=== PATIENT | male | born 2005 | race Caucasian/White ===

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

== ENCOUNTER 2023-01-31 10:14 | Emergency (ER) | payer OTHER, SELFPAY ==
[2023-01-31 10:15] VITALS: BP 120/73; PULSE 74; RESP 16; TEMP 36.6; O2SAT 99; BMI 31.4
--- NOTE | 2023-01-31 10:53 | ED.VIS.CHEST ---
HPI History of Present Illness Chief Complaint: Chest Pain Narrative Narrative: 18-year-old male presenting with chest discomfort. Patient states that he was ill about a week and a half ago and had a cold. He was tested for COVID and this was negative. He is recovered since. He no longer has fevers, chills, body aches. He is eating and drinking normally. He is making normal urine and stool. Patient notes he has some discomfort in his chest but also notes that he played baseball for the first time in a while last night. He was running the bases and did not feel short of breath. He thinks he may have pulled something in his chest from swinging a baseball bat. He called his primary care physician who referred him to the urgent care to get a chest x-ray. The urgent care then had him come to the emergency room because of the chest pain. Patient has no cardiac history. No DVT/PE risk factors. [facility] Medical History Asthma Contact with and (suspected) exposure to other viral communicable diseases URI (upper respiratory infection) Home Medications rizatriptan 10 mg tablet 10 mg PO .X1 PRN 03/13/19 [History Last Taken 03/12/19] albuterol sulfate 90 mcg/actuation breath activated powder inhaler 2 inh inhalation Q6H PRN 12/10/20 [History Last Taken Unknown] Allergy/AdvReac Type Severity Reaction Status Date / Time No Known Allergies Allergy Verified 01/31/23 10:17 Social History Smoking Status: Never smoker alcohol intake: never ROS ROS ED Constitutional Constitutional ED: Denies chills, fever(s) or sweats Eyes Eyes: Denies blurry vision or change in vision ENT ENT ED: Denies ear pain or sore throat Cardiovascular Cardiovascular: Reports chest pain; Denies palpitations or racing heartbeat Respiratory/Chest Respiratory/Chest: Denies cough, dyspnea or sputum Gastrointestinal Gastrointestinal: Denies abdominal pain, constipation, diarrhea, nausea or vomiting Genitourinary Genitourinary ED: Denies dysuria, hematuria or urinary frequency Musculoskeletal Musculoskeletal: Denies arthralgias, myalgias or neck pain Integumentary Denies abscess, Abrasions or rash Neurologic Neurologic: Denies headache(s), paresthesias or weakness Psychiatric Psychiatric: Denies anxiety, depression, suicidal ideation or suicidal thoughts Endocrine Endocrinology: Denies polydipsia or polyuria EXAM Physical Exam Const Vital Signs: 01/31/23 10:15 Temperature 97.9 F Temperature Source Temporal Pulse Rate 74 Respiratory Rate 16 Blood Pressure 120/73 Blood Pressure Mean 88 Pulse Ox 99 Oxygen Delivery Method Room Air Positive well nourished General Appearance ED: NAD; Negative for pallor HEENT Reports moist mucous membranes Eyes PERRL and EOMs intact bilaterally Chest Wall inspection of chest normal and palpation of chest normal Resp normal respiratory effort and clear to auscultation bilaterally Cardio Negative for regular rate or regular rhythm Neuro oriented x3 and CN's II-XII intact bilaterally Sensorium / Orientation: awake Motor Exam: strength 5/5 throughout Psych mental status grossly normal Skin no rashes or lesions noted General Skin Exam: Negative for jaundice or pallor MDM MDM MDM Narrative Medical decision making narrative: Well-appearing 18-year-old male with chest discomfort. Lungs are clear to auscultation on examination. Vital signs are stable he is afebrile. No history of cardiac disease and no risk factors. He is otherwise healthy. He is PERC negative. I offered a chest x-ray, but the patient declined. He states he does need a work note for today because he had a leave work. I do not believe he needs a cardiac work-up. Return precautions were discussed. Impression: 1. Chest pain? Discharge Plan Triage Chief Complaint: Chest Pain ED Provider: Jose Alberto Gomez Dx/Rx/DC Orders Instructions: ED Chest Wall Pain, Costochondritis Prescriptions: No Action albuterol sulfate 90 mcg/actuation aerosol powdr breath activated 2 inh inhalation Q6H PRN rizatriptan 10 MG tablet 10 mg PO .X1 PRN Stand Alone Forms: Work / School Excuse Primary Care Provider: Baldomero Monahan Referrals: Baldomero Monahan MD [Primary Care Provider] - Disposition Disposition: Home, Self Care
[2023-01-31 10:57] VITALS: BP 124/78; PULSE 64; RESP 14; TEMP 37; O2SAT 99
== END 2023-01-31 10:58 | disposition home or self-care (01) ==
PROVIDERS: Emergency Provider Student in an Organized Health Care Education/Training Program; PCP Pediatrics; Visit Provider Student in an Organized Health Care Education/Training Program
DX: R07.9 Chest pain, unspecified (principal); J45.909 Unspecified asthma, uncomplicated; Z79.899 Other long term (current) drug therapy
CPT/HCPCS: 99282

== ENCOUNTER 2023-02-25 11:30 | Emergency (ER) | payer OTHER, SELFPAY ==
[2023-02-25 11:31] VITALS: BP 115/76; PULSE 75; RESP 16; TEMP 37.2; O2SAT 99; BMI 31.5
--- NOTE | 2023-02-25 11:40 | EDS_ITS ---
HPI <MANUELITO Daniels - Last Filed: 02/25/23 13:42> History of Present Illness Chief Complaint: Male Pain/Injury Narrative Narrative: Patient is a 18-year-old male with no significant ankle history presents to the emergency department with left testicular pain. Patient was playing football, he was running when he felt something pull, he now has significant pain to his left testicle, he states is difficult to walk. He states he had a hernia 5 years ago to his right testicle, he is here for evaluation. He denies any difficulty urinating. Denies any traumatic injury. PFSH <MANUELITO Daniels - Last Filed: 02/25/23 13:42> [facility] Medical History Asthma Contact with and (suspected) exposure to other viral communicable diseases URI (upper respiratory infection) Home Medications rizatriptan 10 mg tablet 10 mg PO .X1 PRN 03/13/19 [History Last Taken 03/12/19] albuterol sulfate 90 mcg/actuation breath activated powder inhaler 2 inh inhalation Q6H PRN 12/10/20 [History Last Taken Unknown] Allergy/AdvReac Type Severity Reaction Status Date / Time No Known Allergies Allergy Verified 02/25/23 11:33 Social History Smoking Status: Never smoker alcohol intake: never ROS <MANUELITO Daniels - Last Filed: 02/25/23 13:42> ROS ED ROS Narrative Constitutional: Negative for fever, chills, weight loss, weakness Eyes: Negative for vision loss, vision change, double vision ENT: Negative for any sore throat, ear pain, congestion Cardiovascular: Negative for any chest pain, tightness, palpitations Respiratory: Negative for any cough, sputum production, hemoptysis, dyspnea, dyspnea on exertion, orthopnea Gastrointestinal: Negative for any abdominal pain, nausea, vomiting, diarrhea, constipation, blood in stool, blood in vomit : Negative for any urinary frequency, dysuria, retention, blood in urine. Positive testicular pain Muscle skeletal: Negative for any muscle joint pain, stiffness, myalgias, arthralgias, neck pain, back pain Neurological: Negative for any headache, syncope, numbness or tingling, dizziness Skin: Negative for any rashes, lumps, itching, abrasions, lacerations Psychiatric: Negative for any depression, anxiety, stress, suicidal ideation, homicidal ideation Hematologic: Negative for any easy bruising, excessive bruising, easy bleeding Allergies: Negative for any eczema, hives, rash EXAM <MANUELITO Daniels - Last Filed: 02/25/23 13:42> Physical Exam Narrative Exam Narrative: Vital signs reviewed. Abdomen: Soft, nontender, nondistended. No abdominal bruit or pulsatile masses. No hepatosplenomegaly Extremities: No peripheral edema, no signs of gross trauma or deformity. Active full range of motion of all extremities. Neuro: Cranial nerves II through XII intact, no focal neurological deficits. Skin: Clean dry and intact with no rash, purpura, petechiae, vesicles or pustules. Backs/flank: No CVA tenderness, no midline spinal tenderness, no deformity. Psych: Normal mood and affect. No SI, HI or acute psychosis. : Testicular exam was completed, there is no lesions, no drainage. There is no significant swelling, edema or erythema. Patient did have pain on palpation of the left testicle worse on the posterior aspect. Const Vital Signs: 02/25/23 11:31 Temperature 99 F Temperature Source Temporal Pulse Rate 75 Respiratory Rate 16 Blood Pressure 115/76 Blood Pressure Mean 89 Pulse Ox 99 Oxygen Delivery Method Room Air Positive well nourished and well developed General Appearance ED: well developed <Dr. Leoncio Thomas DO - Last Filed: 02/25/23 13:56> Physical Exam Const Vital Signs: 02/25/23 11:31 Temperature 99 F Temperature Source Temporal Pulse Rate 75 Respiratory Rate 16 Blood Pressure 115/76 Blood Pressure Mean 89 Pulse Ox 99 Oxygen Delivery Method Room Air MDM <MANUELITO Daniels - Last Filed: 02/25/23 13:42> MDM Radiography Diagnostic Testing: Clinical Impression(s) from Imaging Studies Testicular Ultrasound 02/25/23 11:40 IMPRESSION: 1. No evidence of testicular torsion at the time this examination was performed. 2. Slight increased vascularity of the left epididymis compared to the right side which may reflect epididymitis. Electronically Signed: Jus Alicea MD at 13:34 EDT , Treatment and Re-Evaluation Narrative: Patient appears to be in no obvious distress, when patient is laying down, patient states that the pain is less. Worsening pain when he standing up, palpation. Patient does have pain in left testicle after playing flag football. Patient received a testicular ultrasound ensuring that there is no testicular torsion, epididymitis, hernia. Patient was offered ibuprofen however refused at this time. Patient ultrasound of the testicle showed no evidence of testicular torsion at this time. Slight increase in vascularity of the left epididymitis compared to the right. According to the ultrasound could reflect epididymitis however this is secondary to the patient playing football. Believe that this is inflammation. This could be causing the discomfort. There is no evidence of any torsion, blood flow is normal. At this time, patient be instructed to ice, elevate, and to use ibuprofen. If it is not improved in 1 week, patient will follow-up with urology. He is happy with the plan of care I spoke with the patient the patient's mother, all questions were answered. Stable for discharge <Dr. Leoncio Thomas, DO - Last Filed: 02/25/23 13:56> MDM Radiography Diagnostic Testing: Clinical Impression(s) from Imaging Studies Testicular Ultrasound 02/25/23 11:40 IMPRESSION: 1. No evidence of testicular torsion at the time this examination was performed. 2. Slight increased vascularity of the left epididymis compared to the right side which may reflect epididymitis. Electronically Signed: Jus Alicea MD at 13:34 EDT , Treatment and Re-Evaluation Narrative: Patient appears to be in no obvious distress, when patient is laying down, patient states that the pain is less. Worsening pain when he standing up, palpation. Patient does have pain in left testicle after playing flag football. Patient received a testicular ultrasound ensuring that there is no testicular torsion, epididymitis, hernia. Patient was offered ibuprofen however refused at this time. Patient ultrasound of the testicle showed no evidence of testicular torsion at this time. Slight increase in vascularity of the left epididymitis compared to the right. According to the ultrasound could reflect epididymitis however this is secondary to the patient playing football. Believe that this is inflammation. This could be causing the discomfort. There is no evidence of any torsion, blood flow is normal. At this time, patient be instructed to ice, elevate, and to use ibuprofen. If it is not improved in 1 week, patient will follow-up with urology. He is happy with the plan of care I spoke with the patient the patient's mother, all questions were answered. Stable for discharge I have personally performed a face to face assessment of the patient and have reviewed the VERN Note. I performed a substantive portion of the visit including all aspects of the following. My forrest findings include: History is 18-year-old male playing backyard football when he took off running and made a cut. He felt pain in the left testicle region. Patient denies any bulge. He denies any bruising. He states he has had a prior hernia before but did not require surgery. Exam is cremasteric reflex intact. There is no bruising/ecchymosis of the scrotum. Testicle is tender to palpation. There is no hernia with Valsalva or with palpation. No pain at the inguinal ring. Medical Decison Making testicular ultrasound does not demonstrate any evidence of torsion. Slight increased blood flow noted by the radiologist to the epididymis however epididymitis would be very atypical given the history. Would recommend ice anti-inflammatories follow-up if no improvement return if worsening Other additions or changes: [None] Discharge Plan Triage Chief Complaint: Male Pain/Injury ED Midlevel Provider: Hank Pabon ED Provider: Leoncio Thomas Dx/Rx/DC Orders Clinical Impression: Groin strain, Left testicular pain Instructions: ED Testicular Pain, Unclear Cause Prescriptions: No Action albuterol sulfate 90 mcg/actuation aerosol powdr breath activated 2 inh inhalation Q6H PRN rizatriptan 10 MG tablet 10 mg PO .X1 PRN Primary Care Provider: Baldomero Monahan Referrals: Teja Mattson MD [Med Staff - Active Staff] - Baldomero Monahan MD [Primary Care Provider] - Disposition Disposition: Home, Self Care Discharge Date/Time: 02/25/23 13:53
--- NOTE | 2023-02-25 11:40 | US_ITS ---
INDICATION: Left testicular pain. EXAMINATION: Ultrasound US Scrotum (Contents) TECHNIQUE: Realtime ultrasound of the testicles was performed with grayscale, Color Doppler and spectral Doppler analysis. COMPARISON: Prior examination of 06/11/2018. FINDINGS: RIGHT: TESTIS: 4.5 x 3.4 x 2.4 cm. Normal in size and echotexture, without focal lesion. COLOR DOPPLER: Normal arterial flow present in the testicle with monophasic waveforms. EPIDIDYMIS: Prominent in size measuring about 1.3 cm and unremarkable echotexture, without focal lesion. [Normal color Doppler flow pattern in the epididymis. HYDROCELE: None. VARICOCELE: None. LEFT: TESTIS: 4.2 x 3.4 x 2.6 cm. Normal in size and echotexture, without focal lesion. COLOR DOPPLER: Normal arterial flow present in the testicle with monophasic waveforms. EPIDIDYMIS: Dominant in size and unremarkable echotexture, without focal lesion. Increased vascularity of the left epididymis. HYDROCELE: None. VARICOCELE: None. US/Testicular with Arterial Flow IMPRESSION: 1. No evidence of testicular torsion at the time this examination was performed. 2. Slight increased vascularity of the left epididymis compared to the right side which may reflect epididymitis. Electronically Signed: Jus Alicea MD at 13:34 EDT ,
== END 2023-02-25 13:53 | disposition home or self-care (01) ==
PROVIDERS: Emergency Provider Emergency Medicine; PCP Pediatrics; Visit Provider Emergency Medicine
DX: N50.812 Left testicular pain (principal); J45.909 Unspecified asthma, uncomplicated; Z79.899 Other long term (current) drug therapy; S76.811A Strain of other specified muscles, fascia and tendons at thigh level, right thigh, initial encounter; X58.XXXA Exposure to other specified factors, initial encounter; Y93.02 Activity, running; Y92.321 Football field as the place of occurrence of the external cause
CPT/HCPCS: 76870; 93976; 99282

== ENCOUNTER → 2023-05-11 | Outpatient (CLI) | payer OTHER, SELFPAY ==
--- NOTE | 2023-05-11 10:57 | RAD_ITS ---
STUDY: X-RAY - RIGHT SHOULDER REASON FOR EXAM: Male, 18 years old. Acute right shoulder pain. TECHNIQUE: 4 view(s) of the shoulder. COMPARISON: November 11, 2021 FINDINGS: Normal glenohumeral articulation. Normal acromioclavicular joint. Normal acromion. Normal humeral head and visualized proximal humerus. Normal soft tissues. Normal visualized pulmonary apex. RAD/Shoulder min 2 Views IMPRESSION: No interval change. Normal shoulder. Electronically Signed: Daron Mo MD at 13:11 EST ,
== END | disposition home or self-care (01) ==
LOC: RAD 10:55
PROVIDERS: PCP Pediatrics; Referring Provider Pediatrics; Visit Provider Pediatrics
DX: M25.511 Pain in right shoulder (principal)
CPT/HCPCS: 73030

== ENCOUNTER 2024-09-12 18:24 | Emergency (ER) | payer OTHER, SELFPAY ==
[2024-09-12 18:24] VITALS: BP 141/69; PULSE 97; RESP 16; TEMP 36.7; O2SAT 99; BMI 26.9
--- NOTE | 2024-09-12 18:41 | EDS_ITS ---
HPI History of Present Illness Chief Complaint: Eye Problem Detail of Chief Complaint: Left eye chemical splash Informant: patient Narrative Narrative: Patient presents to the emergency department with chemical splash into the left eye. Patient states that he was working on a machine that did not have peroxide flowing through it so he unhooked the hose connection which then sprayed little bit of 44% peroxide onto his left arm and in and around his left eye. He was wearing safety glasses. Patient had some irritation and he did irrigate the eye at work. Comes into the ER for continued irrigation. He just has some minimal irritation currently. He denies any vision change. [facility] Medical History Asthma Contact with and (suspected) exposure to other viral communicable diseases URI (upper respiratory infection) Home Medications ?Medication ?Instructions ?Recorded ?Last Taken ?Type rizatriptan 10 mg tablet 10 mg PO .X1 PRN 03/13/19 History albuterol sulfate 90 mcg/actuation 2 inh inhalation Q6 H PRN 12/10/20 Unknown History breath activated powder inhaler azithromycin 200 mg/5 mL oral See Rx Instructions PO . COMPLEX 06/13/24 Unknown Rx suspension #40 mL erythromycin 5 mg/gram (0.5 %) eye 1 applic LEFT EYE Q 6H #3.5 grams 09/12/24 Unknown Rx ointment Allergy/AdvReac Type Severity Reaction Status Date / Time No Known Allergies Allergy Verified 09/12/24 18:25 Social History Smoking Status: Never smoker alcohol intake: never ROS ROS ED Review of Systems ROS Unobtainable: other Constitutional Constitutional ED: Reports lethargy; Denies chills, fever(s), sweats or weight loss Eyes Eyes: Reports other Details: Left eye chemical splash ; Denies blurry vision, change in vision or diplopia ENT ENT ED: Denies rhinorrhea or sore throat Cardiovascular Cardiovascular: Denies chest pain, orthopnea or racing heartbeat Respiratory/Chest Respiratory/Chest: Denies cough, dyspnea, dyspnea on exertion, orthopnea or sputum Gastrointestinal Gastrointestinal: Denies abdominal pain, diarrhea, nausea or vomiting Genitourinary Genitourinary ED: Denies dysuria, hematuria or urinary frequency Musculoskeletal Musculoskeletal: Denies arthralgias, back pain, myalgias or neck pain Integumentary Denies abscess, Abrasions or rash Neurologic Neurologic: Denies headache(s) or weakness Psychiatric Psychiatric: Denies anxiety, depression or suicidal thoughts Endocrine Endocrinology: Denies polydipsia, polyphagia or polyuria Hematologic/Lymphatic Hematologic/Lymphatic: Denies easy bleeding, easy bruising or lymphadenopathy Allergic/Immunologic Allergic/Immunologic ED: Denies mouth swelling, tongue swelling or urticaria EXAM Physical Exam Const Vital Signs: 09/12/24 18:24 Temperature 98.1 F Temperature Source Temporal Pulse Rate 97 Respiratory Rate 16 Blood Pressure 141/69 H Blood Pressure Mean 93 Pulse Ox 99 Oxygen Delivery Method Room Air Positive well nourished and well developed General Appearance ED: well developed and NAD HEENT Reports TM's clear and moist mucous membranes HEENT Narrative: Left eye-no significant erythema of the conjunctiva noted. Pupils are equal react light bilaterally. No chemical cuellar noted to the skin around the eye. Extraocular muscle movement is normal normocephalic and atraumatic; Negative for trauma or tenderness Tympanic Membrane ED: Yes TM's clear Eyes PERRL and EOMs intact bilaterally General Eye ED: Negative for pale conjunctiva or scleral icterus Neck no lymphadenopathy, supple and no JVD General: Negative for tenderness Chest Wall inspection of chest normal and palpation of chest normal Chest: Negative for tenderness Resp normal respiratory effort and clear to auscultation bilaterally Effort and Inspection: Negative for respiratory distress or pain with movement Auscultation: Negative for rhonchi, wheezes or diminished lung sounds Cardio regular rate, regular rhythm, S1 normal heart sound, S2 normal heart sound and no murmurs Peripheral Pulses: pulses 2+ throughout GI normal to inspection, nondistended, normoactive bowel sounds, soft to palpation, non-tender, non-distended and no masses Back/Spine no CVA tenderness and no thoracic nor lumbar tenderness Extremity normal to inspection General Extremety ED: Negative for edema General Extremity: Negative for edema Neuro oriented x3, CN's II-XII intact bilaterally, no sensory deficits noted and gait normal Sensorium / Orientation: awake, alert, oriented to person, oriented to place and oriented to time Motor Exam: strength 5/5 throughout and strength abnormal Psych mental status grossly normal Skin no rashes or lesions noted and no wounds MDM MDM MDM Narrative Medical decision making narrative: Patient presents with chemical splash to left eye. Clinically looks well. No significant cuellar noted on exam. Patient had tetracaine applied to the left eye and using a Gigi lens we irrigated the eye with saline. Discussed case with Dr. Lambert who recommended erythromycin ointment and outpatient follow-up with their office in 2 days. Discharge Plan Triage Chief Complaint: Eye Problem ED Provider: Connie Bhatt Dx/Rx/DC Orders Clinical Impression: Acute chemical conjunctivitis Instructions: ED Eye Exposure, Chemical Prescriptions: New erythromycin 5 mg/gram (0.5 %) ointment 1 applic LEFT EYE Q6H Qty: 3.5 0RF No Action albuterol sulfate 90 mcg/actuation aerosol powdr breath activated 2 inh inhalation Q6H PRN azithromycin 200 mg/5 mL suspension for reconstitution See Rx Instructions PO .COMPLEX Qty: 40 0RF Rx Instructions: take 12.5 mL (500 mg) by mouth today (day 1), then 6.25 mL (250 mg) daily for 4 days (days 2-5) PO rizatriptan 10 MG tablet 10 mg PO .X1 PRN Primary Care Provider: Care Physician,No Primary Referrals: David Berkowitz MD [Med Staff - Active Staff] - 2 Days Baldomero Monahan MD [Non-Staff] - Print Language: Wolof
[2024-09-12] MEDS: Tetracaine 0.5% Ophthalmic Bottle 1 DRP LEFT EYE (18:59)
== END 2024-09-12 20:01 | disposition home or self-care (01) ==
LOC: ED 19:11
PROVIDERS: Emergency Provider Emergency Medicine; Visit Provider Emergency Medicine
DX: T65.891A Toxic effect of other specified substances, accidental (unintentional), initial encounter (principal); H10.212 Acute toxic conjunctivitis, left eye; Y93.89 Activity, other specified; Y99.0 Civilian activity done for income or pay; Y92.89 Other specified places as the place of occurrence of the external cause
CPT/HCPCS: 99283; A4216

== ENCOUNTER 2024-10-11 16:39 | Emergency (ER) | payer OTHER, SELFPAY ==
[2024-10-11 16:40] VITALS: PULSE 82; RESP 18; TEMP 36.1; O2SAT 99; BMI 26.9
[2024-10-11 16:42] VITALS: BP 111/96
--- NOTE | 2024-10-11 16:51 | EKG12_ITS ---
Test Reason : CP Blood Pressure : */* mmHG Vent. Rate : 71 BPM Atrial Rate : 71 BPM P-R Int : 156 ms QRS Dur : 80 ms QT Int : 344 ms P-R-T Axes : 48 72 49 degrees QTcB Int : 373 ms Normal sinus rhythm with sinus arrhythmia Normal ECG Confirmed by Carlo Flores ([id number]), food editor DEVON GILBERT ([id number]) on 10/13/2024 9:14:30 AM Referred By: Confirmed By: Carlo Flores
--- NOTE | 2024-10-11 16:52 | EDS_ITS ---
HPI History of Present Illness Chief Complaint: Abd Pain Detail of Chief Complaint: Left-sided chest pain that started this morning at approximately 9 AM Informant: patient Onset/Context/Timing Onset: Today Context: Sudden Onset Timing: Continuous Quality: Burning left-sided chest pain Location: Left pectoral region Current Severity: Mild Maximum Severity: Moderate Worsened by: Nothing Relieved by: Nothing Associated Symptoms Associated Symptoms: None Narrative Narrative: Patient is a 19-year-old male. He presents with burning left-sided chest pain that started at 9 AM. There is no alleviating precipitating or exacerbating factors. He states he took 4 Tums with a full glass of water with no improvement. He does have history of reflux. Last evening he had very healthy meal. He denies nausea, vomiting diarrhea. He denies dyspnea. He denies pleuritic chest pain. He denies recent upper respiratory infection. He denies GI symptoms. Specifically black or maroon-colored stool. There is no history of VTE. He denies leg pain, swelling discoloration. He has no risk factors for VTE. Patient concerned because his dad had an MO at age 52. There is strong family history of cardiac disease maternal side at young age as well. Prior similar symptoms: No Recent Illness/Hospitalization: No [facility] Medical History Contact with and (suspected) exposure to other viral communicable diseases URI (upper respiratory infection) Asthma Home Medications ?Medication ?Instructions ?Recorded ?Last Taken ?Type rizatriptan 10 mg tablet 10 mg PO .X1 PRN 03/13/19 History albuterol sulfate 90 mcg/actuation 2 puff inhalation Q 4H PRN 10/11/24 09/14/24 History aerosol inhaler shortness of breath or wheez ing Allergy/AdvReac Type Severity Reaction Status Date / Time No Known Allergies Allergy Verified 10/11/24 16:40 Social History (Updated 10/11/24 @ 17:10 by Valerie Ferreira) household members: family housing: house Smoking Status: Never smoker alcohol intake: current alcohol intake frequency: a few times a month substance use type: does not use ROS ROS ED Constitutional Constitutional ED: Denies chills, fever(s) or subjective Eyes Eyes: Denies blurry vision or change in vision ENT ENT ED: Denies ear pain, rhinorrhea or sore throat Cardiovascular Cardiovascular: Reports chest pain; Denies orthopnea, palpitations, paroxysmal nocturnal dyspnea or racing heartbeat Respiratory/Chest Respiratory/Chest: Denies cough, dyspnea, dyspnea on exertion, orthopnea or paroxysmal nocturnal dyspnea Gastrointestinal Gastrointestinal: Denies abdominal pain, melena, nausea or vomiting Musculoskeletal Musculoskeletal: Denies back pain or neck pain Integumentary Denies rash Psychiatric Psychiatric: Reports anxiety Hematologic/Lymphatic Hematologic/Lymphatic: Reports systems reviewed and no addt'l complaints, except as documented EXAM Physical Exam Const Vital Signs: 10/11/24 16:40 10/11/24 16:42 Temperature 97 F L Temperature Source Temporal Pulse Rate 82 Respiratory Rate 18 Blood Pressure 111/96 H Blood Pressure Mean 101 Pulse Ox 99 Positive well nourished and well developed General Appearance ED: well developed and NAD HEENT Reports moist mucous membranes HEENT Narrative: Head is atraumatic normocephalic. Ears normal. Nares patent. Eyes PERRL and EOMs intact bilaterally General Eye ED: Negative for pale conjunctiva or scleral icterus Neck no lymphadenopathy, supple and no JVD Chest Wall inspection of chest normal and palpation of chest normal Resp normal respiratory effort and clear to auscultation bilaterally Cardio regular rate, regular rhythm, S1 normal heart sound, S2 normal heart sound and no murmurs GI normal to inspection, nondistended, normoactive bowel sounds, non-tender, non- distended, hepatosplenomegaly and no masses Back/Spine no CVA tenderness Extremity normal to inspection General Extremety ED: Negative for edema or tenderness General Extremity: Negative for edema Neuro oriented x3, CN's II-XII intact bilaterally and no sensory deficits noted Sensorium / Orientation: alert Motor Exam: strength 5/5 throughout Psych mental status grossly normal Skin no rashes or lesions noted, no wounds and skin turgor normal MDM MDM MDM Narrative Medical decision making narrative: Differential for chest pain is anxiety, musculoskeletal, pulmonary, GI, and cardiac. Appropriate workup was undertaken which included EKG, chest x-ray and labs. There is a reproducible component. There is no pain fourth fifth intercostal space to suspect costochondritis. History & Record Review Additional record(s) reviewed:: Prior outpatient record (He had an urgent care visit June 2024 for upper respiratory tract infection. Urgent care visit April 2023 for upper respiratory infection), Prior ED visit (Patient was seen in the ER September 12 for chemical conjunctivitis) and Prior labs Lab Data Attestation: I reviewed the patient's lab results. Lab results narrative: CBC is unremarkable. Basic metabolic panel visit elevated BUN to creatinine ratio approximately 33-1. BUN is 26 with a creatinine of 0.78. Labs: Laboratory Results - last 24 hr 10/11/24 10/11/24 17:03 17:13 WBC Cancelled 8.7 Corrected WBC Cancelled RBC Cancelled 4.63 Hgb Cancelled 13.8 Hct Cancelled 39.9 L MCV Cancelled 86.2 MCH Cancelled 29.8 MCHC Cancelled 34.6 RDW Std Deviation Cancelled 39.0 RDW Coeff of Paulino Cancelled 12.4 Plt Count Cancelled 244 MPV Cancelled 10.3 Immature Gran % (Auto) 0.200 Neut % (Auto) 68.3 Lymph % (Auto) 22.6 Spink % (Auto) 7.9 Eos % (Auto) 0.8 Baso % (Auto) 0.2 Absolute Neuts (auto) 5.9 Absolute Lymphs (auto) 1.97 Nucleated RBC % 0 Diff Path Review Cancelled Sodium 135 Potassium 5.1 Chloride 102 Carbon Dioxide 21.1 Anion Gap 11 BUN 26 H Creatinine 0.78 Estim Creat Clear Calc 159.56 Est GFR (MDRD) Non-Af 130 BUN/Creatinine Ratio 33.0 H Glucose 102 H Calcium 9.8 Radiography Chest X-Ray - ED: 2 View, Read by ED Physician (Independent reviewed interpreted by me at 1728.), Normal, Heart, Lungs, Mediastinum, Bony Structures and No Acute Disease Discharge Plan Triage Chief Complaint: Abd Pain ED Provider: Harsh Dimas Dx/Rx/DC Orders Prescriptions: No Action rizatriptan 10 MG tablet 10 mg PO .X1 PRN albuterol sulfate 90 mcg/actuation HFA aerosol inhaler 2 puff inhalation Q4H PRN (Reason: shortness of breath or wheezing) Primary Care Provider: Baldomero Phan Referrals: Care Physician,No Primary [Non-Staff] - Print Language: Thai
[2024-10-11] MEDS: 0.9% Normal Saline (1000mL) 1,000 ML 1000 ML IV (17:02)
--- NOTE | 2024-10-11 17:15 | RAD_ITS ---
PROCEDURE: CHEST PA AND LATERAL 10/11/2024 REASON FOR EXAM: LEFT-SIDED CHEST PAIN TECHNIQUE: Frontal and lateral views of the chest. COMPARISON: 05/14/2022 FINDINGS: Hardware: None Heart: The heart size is normal. Mediastinum: The mediastinal contour is unremarkable. Lungs: No focal consolidation. No pneumothorax. No pleural effusion. Bones: The bones are unremarkable. RAD/Chest PA and Lateral IMPRESSION: NO ACUTE FINDINGS. Reading Location: [facility]
[2024-10-11 17:18] LABS: Absolute Lymphocyte Count 1.97 X10^3/uL (0.83-4.51); Absolute Neutrophil Count 5.9 X10^3/uL (2.0-7.7); Basophil# 0.02 X10^3/uL; Basophil% 0.2 % (0-1); Eosinophil# 0.07 X10^3/uL; Eosinophils% 0.8 % (0-5); Hematocrit 39.9 % (40-54); Hemoglobin 13.8 g/dL (13.0-16.5); Lymphocyte # 1.97 X10^3/ul (0.83-4.51); Lymphocyte % 22.6 % (19-41); Mean Corp Hgb Conc 34.6 g/dL (32-36); Mean Corpuscular Hgb 29.8 pg (27.0-32.0); Mean Corpuscular Volume 86.2 fL (80-94); Mean Platelet Vol. 10.3 fl (6.2-12.0); Monocyte# 0.69 X10^3/uL; Monocyte% 7.9 % (0-10); NRBC Flagged by Analyzer 0 % (0-5); Neutrophil # 5.93 X10^3/uL (2.7-7.7); Neutrophil % 68.3 % (47-70); Platelet Count 244 K/mm3 (150-450); RBC Distribution Width CV 12.4 % (11.6-14.6); Red Blood Count 4.63 M/mm3 (4.6-6.2); White Blood Count 8.7 K/mm3 (4.4-11.0)
[2024-10-11 17:29] LABS: Anion Gap 11 (5-15); BUN 26 mg/dL (4-19); Calcium,Total 9.8 mg/dL (7.6-11.0); Carbon Dioxide 21.1 mmol/L (21.0-32.0); Chloride 102 mmol/L (98-108); Creatinine, Serum 0.78 mg/dL (0.70-1.20); EST Glomerular Filtration Rate 130 (>60); Estimated Creatinine Clearance 159.56 ml/min (50-250); Glucose 102 mg/dL (70-99); Potassium 5.1 mmol/L (3.3-5.1); Sodium Level 135 mmol/L (133-145)
[2024-10-11 17:55] LABS: Troponin T High Sensitivity < 6 ng/L (<=22)
[2024-10-11 18:10] VITALS: BP 111/96; PULSE 68; RESP 18; TEMP 36.6; O2SAT 99
== END 2024-10-11 18:11 | disposition home or self-care (01) ==
PROVIDERS: Emergency Provider Emergency Medicine; PCP Family Medicine; Visit Provider Emergency Medicine
DX: R07.9 Chest pain, unspecified (principal)
CPT/HCPCS: 71046; 80048; 84484; 85025; 93005; 96360; 99283; A4216

== ENCOUNTER → 2025-04-15 | Outpatient (CLI) | payer OTHER, SELFPAY ==
--- NOTE | 2025-04-15 13:06 | US_ITS ---
PROCEDURE: THYROID 04/15/2025 REASON FOR EXAM: THYROMEGALY TECHNIQUE: Procedure Code: USTHY Modality: US Procedure: THYROID COMPARISON: None FINDINGS: Right thyroid lobe size: 5.3 cm 1.7 cm 1.7 cm Left thyroid lobe size: 5 cm x 1.5 cm 1.4 cm Isthmus: 0.3 cm Background parenchymal echotexture is heterogeneous Nodules: No thyroid nodule is seen. US/Thyroid IMPRESSION: Mild thyromegaly. Heterogeneous echotexture although no focal nodule is seen. RECOMMENDATION: Based on most suspicious nodule. Nodule size = largest diameter Only evaluate nodule if =>5 mm. Growth > 20% in 2 dimensions = worsening. Follow up to 4 nodules. Recommend biopsy for no more than 2 nodules. Reading Location: [id number]
== END | disposition home or self-care (01) ==
LOC: US 13:04
PROVIDERS: PCP Family Medicine; Referring Provider Family Medicine; Visit Provider Family Medicine
DX: E01.0 Iodine-deficiency related diffuse (endemic) goiter (principal); R53.83 Other fatigue
CPT/HCPCS: 76536